=== PATIENT | female | born 1980 ===

== ENCOUNTER 2018-10-10 15:28 | Inpatient (IN) | payer BC, MEDICAID ==
[2018-10-10] MEDS ORDERED: HYDROmorphone 1 MG/ML Syringe IVPUSH ONE (16:06)
[2018-10-10] MEDS ORDERED: Ondansetron 4 MG/2 ML SDV IVPUSH ONE (16:06)
[2018-10-10] MEDS ORDERED: Ampicillin/Sulbactam Na 3 GM in Sodium Chloride 0.9% 100 ML IV ONE (16:07)
[2018-10-10] MEDS: Sodium Chloride 0.9% 1,000 ML IV SCH ×2 (16:17→19:17)
--- NOTE | 2018-10-10 16:26 | EDM.PDOC ---
ED HPI GENERAL MEDICAL PROBLEM - General Chief Complaint: ENT Problem Stated Complaint: LEFT SIDE OF FACE SWOLLEN Time Seen by Provider: 10/10/18 15:36 Source of Information: Reports: Patient, Family (), RN Notes Reviewed History Limitations: Reports: No Limitations - History of Present Illness INITIAL COMMENTS - FREE TEXT/NARRATIVE: The patient states that she underwent a left upper (likely tooth #11) root canal per her dentist, Dr. Walton, this past , 10/07/2018. She states that she was not prescribed any antibiotics. She states that she initially had some mild discomfort to the tooth after the numbing medicine wore off, then developed some left sided facial pain yesterday. She took Aleve, which was adequate. She states that she applied a heating pad to her face last night, and today she woke up with substantial left-sided facial swelling and pain. No recent fever. She denies oral drainage. The patient's PCP is Dr. Farley. Treatments BODY MASKER: Reports: NSAIDS Left Cheek Pain Score (Numeric/FACES): 8 - Related Data Allergies Allergy/AdvReac Type Severity Reaction Status Date / Time No Known Allergies Allergy Verified 10/10/18 15:39 Home Meds: Home Meds buPROPion [Wellbutrin] 100 mg PO DAILY 10/10/18 [History] Past Medical History HEENT History: Reports: Impaired Vision (Disconjugate gaze) Psychiatric History: Reports: Other (See Below) (Borderline personality disorder ) - Past Surgical History HEENT Surgical History: Reports: Adenoidectomy, Eye Surgery (Bilateral strabismus surgery), Naso-Sinus Surgery, Oral Surgery (wisdom teeth extraction) , Tonsillectomy Social & Family History - Tobacco Use Smoking Status *Q: Never Smoker - Caffeine Use Caffeine Use: Reports: Coffee - Alcohol Use Alcohol Use History: Yes Alcohol Use Frequency: Socially - Recreational Drug Use Recreational Drug Use: No - Living Situation & Occupation Living situation: Reports: Single, with Significant Other (Boyfriend), with Family (1 daughter) Occupation: Employed ([employer] at [employer]) ED ROS ENT - Review of Systems Review Of Systems: ROS reveals no pertinent complaints other than HPI. ED EXAM, ENT - Physical Exam Exam: See Below Exam Limited By: No Limitations General Appearance: Alert, WD/WN, No Apparent Distress Eye Exam: Bilateral Eye: EOMI, Other (Disconjugate gaze. Puffiness about left eye) Ears: Normal External Exam, Hearing Grossly Normal Nose: Normal Inspection Mouth/Throat: Normal Inspection, Normal Gums (no swelling or pointing), Normal Lips, Normal Oropharynx, Normal Teeth Head: Atraumatic, Facial Swelling (left maxillary), Facial Tenderness (over left maxillary sinus), Other (Left facial erythema) Neck: Normal Inspection, Supple, Non-Tender, Full Range of Motion. No: Lymphadenopathy (L), Lymphadenopathy (R) Respiratory/Chest: No Respiratory Distress, Lungs Clear, Normal Breath Sounds, No Accessory Muscle Use Cardiovascular: Normal Peripheral Pulses, Regular Rate, Rhythm, No Edema, No Gallop, No JVD, No Murmur, No Rub GI/Abdominal: Normal Bowel Sounds, Soft, Non-Tender, No Organomegaly, No Distention, No Abnormal Bruit, No Mass (Female) Exam: Deferred Rectal (Female) Exam: Deferred Back: Normal Inspection, Full Range of Motion Extremities: Normal Inspection, Normal Range of Motion, No Pedal Edema, Normal Capillary Refill Neurological: Alert, Oriented, Normal Cognition, No Motor/Sensory Deficits Psychiatric: Normal Affect Skin: Warm, Dry, Intact, Normal Color, No Rash Course - Vital Signs Last Recorded V/S: Last Vital Signs Temp 36.7 C 10/10/18 15:35 Pulse 58 L 10/10/18 15:35 Resp 18 10/10/18 15:35 BP 132/93 H 10/10/18 15:35 Pulse Ox 99 10/10/18 15:35 - Orders/Labs/Meds Orders: Active Orders 24 hr Category Date Time Status Max Facial Sinus w Cont [CT] Stat Exams 10/10/18 16:00 Taken Sodium Chloride 0.9% [Normal Saline] 1,000 ml Med 10/10/18 16:15 Active IV ASDIRECTED Medication Orders Sodium Chloride (Normal Saline) 1,000 mls @ 150 mls/hr IV ASDIRECTED ANA MARIA Last Admin: 10/10/18 16:17 Dose: 150 mls/hr Labs: Laboratory Tests 10/10/18 Range/Units 16:15 WBC 12.26 H (3.98-10.04) K/mm3 RBC 4.65 (3.98-5.22) M/mm3 Hgb 14.1 (11.2-15.7) gm/L Hct 41.7 (34.1-44.9) % MCV 89.7 (79.4-94.8) fl MCH 30.3 (25.6-32.2) pg MCHC 33.8 (32.2-35.5) g/dl RDW Std Deviation 39.8 (36.4-46.3) fL Plt Count 247 (182-369) K/mm3 MPV 10.0 (9.4-12.3) fl Neutrophils % (Manual) 76 H (40-60) % Band Neutrophils % 0 (0-10) % Lymphocytes % (Manual) 20 (20-40) % Atypical Lymphs % 0 % Monocytes % (Manual) 4 (2-10) % Eosinophils % (Manual) 0 L (0.7-5.8) % Basophils % (Manual) 0 L (0.1-1.2) Platelet Estimate Adequate RBC Morph Comment Normal Meds: Medications Generic Name Dose Route Start Last Admin Trade Name Freq PRN Reason Stop Dose Admin Sodium Chloride 1,000 mls @ 150 mls/hr 10/10/18 16:15 10/10/18 16:17 Normal Saline IV 150 mls/hr ASDIRECTED ANA MARIA Administration Discontinued Medications Generic Name Dose Route Start Last Admin Trade Name Freq PRN Reason Stop Dose Admin Hydromorphone HCl 1 mg 10/10/18 16:06 10/10/18 16:17 Dilaudid IVPUSH 10/10/18 16:07 1 mg ONETIME ONE Administration Ampicillin Sodium/Sulbactam 100 mls @ 200 mls/hr 10/10/18 16:07 10/10/18 16: 20 Sodium 3 gm/ Sodium Chloride IV 10/10/18 16:36 200 mls/hr ONETIME ONE Administration Iopamidol 50 ml 10/10/18 16:32 Isovue-370 (76%) IVPUSH 10/10/18 16:33 ONETIME ONE Iopamidol 50 ml 10/10/18 16:39 10/10/18 16:57 Isovue-370 (76%) IVPUSH 10/10/18 16:40 30 ml ONETIME ONE Administration Ketorolac Tromethamine 30 mg 10/10/18 17:06 10/10/18 17:09 Toradol IVPUSH 10/10/18 17:07 30 mg ONETIME STA Administration Ondansetron HCl 4 mg 10/10/18 16:06 10/10/18 16:17 Zofran IVPUSH 10/10/18 16:07 4 mg ONETIME ONE Administration - Re-Assessments/Exams Free Text/Narrative Re-Assessment/Exam: 10/10/18 16:12 Given the degree of left facial swelling of the patient has, I have ordered a CT scan maxillofacial to evaluate for an abscess, along with a CBC. In the meantime, the patient will receive Dilaudid, Zofran, and IV fluid. Additionally , since an infection is highly likely, I have ordered 3 g of IV Unasyn. 10/10/18 17:28 CT maxillofacial with contrast is read by Manohar as "Left periorbital/pre- maxillary soft tissue swelling and subcutaneous fat stranding. No abscess." 10/10/18 17:50 Case discussed with the patient and her . I recommended admission to the hospital for IV antibiotics until the patient's condition improves, at which time she can be switched to oral antibiotics. The patient agreed. 10/10/18 18:[address] Snow at 18:11. He asked that we see if Dr. Villaseñor will admit the patient. Case discussed with Dr. Villaseñor at 18:15. He agreed to admit the patient. Departure - Departure Time of Disposition: 18:17 Disposition: Admitted As Inpatient 67 Condition: Fair Clinical Impression: Facial infection - Discharge Information *PRESCRIPTION DRUG MONITORING PROGRAM REVIEWED*: Not Applicable *COPY OF PRESCRIPTION DRUG MONITORING REPORT IN PATIENT MIRNA: Not Applicable Referrals: Randi Roberson MD [Primary Care Provider] - - My Orders Last 24 Hours: My Active Orders 10/10/18 16:00 Max Facial Sinus w Cont [CT] Stat 10/10/18 16:15 Sodium Chloride 0.9% [Normal Saline] 1,000 ml IV ASDIRECTED - Assessment/Plan Last 24 Hours: My Active Orders 10/10/18 16:00 Max Facial Sinus w Cont [CT] Stat 10/10/18 16:15 Sodium Chloride 0.9% [Normal Saline] 1,000 ml IV ASDIRECTED
[2018-10-10] MEDS ORDERED: Iopamidol 755 MG/ML 50 ML Bottle IVPUSH ONE (16:32)
[2018-10-10] MEDS: Iopamidol 755 MG/ML 50 ML Bottle IVPUSH ONE ×2 (16:56→16:57)
[2018-10-10] MEDS ORDERED: Ketorolac 30 MG/ML SDV IVPUSH STA (17:06)
[2018-10-10] MEDS ORDERED: Acetaminophen 325 MG Tab PO PRN (19:58)
[2018-10-10] MEDS ORDERED: Ondansetron 4 MG Tab.DIS PO PRN (19:58)
--- NOTE | 2018-10-10 20:15 | PCM.HP ---
H&P History of Present Illness - General Date of Service: 10/10/18 Admit Problem/Dx: Admission Diagnosis/Problem Admission Diagnosis/Problem Facial infection - History of Present Illness Initial Comments - Free Text/Narative: This 38-year-old female underwent a left upper (likely tooth #11) root canal on September. Patient developed mild facial discomfort after the nerve block wore off. Over the next couple of days the left upper face became more painful, swollen, and became moderately severe yesterday. Today it continued to swell and she developed more pain and when her boyfriend saw her around 1500 today he brought her to the emergency room. Patient is able to handle her own secretions. She denies any fever or chills. She was not given any antibiotics at the time of the root canal. CT scan done by the emergency room physician demonstrated no abscess, But left periorbital/pre-maxillary soft tissue swelling and subcutaneous fat stranding. She was given Unasyn 3 g in the emergency room. She was also given 1 mg Dilaudid IV push, Toradol 30 mg IV push, and Zofran 4 mg IV push. Left Cheek Pain Score (Numeric/FACES): 8 - Related Data Allergies/Adverse Reactions: Allergies Allergy/AdvReac Type Severity Reaction Status Date / Time No Known Allergies Allergy Verified 10/10/18 15:39 Home Medications: Home Meds Multivitamin [Daily Multiple Vitamin] 1 each PO 1200 10/10/18 [History] buPROPion [Wellbutrin] 100 mg PO DAILY 10/10/18 [History] Past Medical History HEENT History: Reports: Impaired Vision (Disconjugate gaze) Psychiatric History: Reports: Other (See Below) (Borderline personality disorder ) - Past Surgical History HEENT Surgical History: Reports: Adenoidectomy, Eye Surgery (Bilateral strabismus surgery), Naso-Sinus Surgery, Oral Surgery (wisdom teeth extraction) , Tonsillectomy Social & Family History - Tobacco Use Smoking Status *Q: Never Smoker - Caffeine Use Caffeine Use: Reports: Coffee - Recreational Drug Use Recreational Drug Use: No - Living Situation & Occupation Living situation: Reports: Single, with Significant Other (Boyfriend), with Family (1 daughter) Occupation: Employed ([employer] at [employer]) H&P Review of Systems - Review of Systems: Review Of Systems: See Below General: Denies: Fever, Chills, Malaise HEENT: Reports: Other (Left facial pain and swelling). Denies: Ear Pain, Eye Pain, Headaches Pulmonary: Reports: No Symptoms. Denies: Shortness of Breath, Wheezing Cardiovascular: Reports: No Symptoms. Denies: Chest Pain, Palpitations Gastrointestinal: Reports: No Symptoms. Denies: Abdominal Pain Genitourinary: Reports: No Symptoms. Denies: Dysuria, Frequency Musculoskeletal: Reports: No Symptoms. Denies: Neck Pain, Shoulder Pain Skin: Reports: Erythema Psychiatric: Reports: No Symptoms. Denies: Confusion, Depression Neurological: Reports: No Symptoms Hematologic/Lymphatic: Reports: No Symptoms Exam - Exam Exam: See Below - Vital Signs Vital Signs: Last Vital Signs Temp 97.9 F 10/10/18 19:10 Pulse 61 10/10/18 19:10 Resp 16 10/10/18 19:10 BP 125/80 10/10/18 19:10 Pulse Ox 98 10/10/18 19:10 Weight: 194 lb 3.2 oz - Exam General: Alert, Oriented, Cooperative HEENT: Conjunctiva Clear, Mucosa Moist & [place], Posterior Pharynx Clear, Other ( Left maxillary area is red, swollen, and tender. Oral mucosa is moist with no signs of dental abscess.). No: EOMI (Amblyopia) Neck: Supple, Trachea Midline. No: Lymphadenopathy Lungs: Clear to Auscultation, Normal Respiratory Effort. No: Rales, Rhonchi Cardiovascular: Regular Rate, Regular Rhythm, Normal S1, Normal S2 GI/Abdominal Exam: Normal Bowel Sounds, Soft, Non-Tender, No Organomegaly, No Distention Extremities: Normal Inspection, Normal Range of Motion, No Pedal Edema Skin: Warm, Dry Neuro Extensive - Mental Status: Alert, Oriented x3, Normal Mood/Affect, Normal Cognition, Memory Intact - Patient Data Lab Results Last 24 hrs: Laboratory Results - last 24 hr 10/10/18 Range/Units 16:15 WBC 12.26 H (3.98-10.04) K/mm3 RBC 4.65 (3.98-5.22) M/mm3 Hgb 14.1 (11.2-15.7) gm/L Hct 41.7 (34.1-44.9) % MCV 89.7 (79.4-94.8) fl MCH 30.3 (25.6-32.2) pg MCHC 33.8 (32.2-35.5) g/dl RDW Std Deviation 39.8 (36.4-46.3) fL Plt Count 247 (182-369) K/mm3 MPV 10.0 (9.4-12.3) fl Neutrophils % (Manual) 76 H (40-60) % Band Neutrophils % 0 (0-10) % Lymphocytes % (Manual) 20 (20-40) % Atypical Lymphs % 0 % Monocytes % (Manual) 4 (2-10) % Eosinophils % (Manual) 0 L (0.7-5.8) % Basophils % (Manual) 0 L (0.1-1.2) Platelet Estimate Adequate RBC Morph Comment Normal Result Diagrams: 10/10/18 16:15 - Problem List (1) Facial infection SNOMED Code(s): 297680212 ICD Code: L08.9 - LOCAL INFECTION OF THE SKIN AND SUBCUTANEOUS TISSUE, UNSP Status: Acute Current Visit: Yes Problem List Initiated/Reviewed/Updated: Yes Orders Last 24hrs: Active Orders 24 hr Category Date Time Status Admission Status [Patient Status] [ADT] Routine ADT 10/10/18 18:46 Active Height and Weight [RC] DAILY Care 10/10/18 19:58 Ordered Intake and Output [RC] QSHIFT Care 10/10/18 19:59 Ordered May Shower [RC] ASDIRECTED Care 10/10/18 19:58 Ordered Oxygen Therapy [RC] PRN Care 10/10/18 19:59 Ordered Up ad Sariah [RC] ASDIRECTED Care 10/10/18 19:58 Ordered VTE/DVT Education [RC] PER UNIT ROUTINE Care 10/10/18 19:59 Ordered Vital Signs [RC] Q4H Care 10/10/18 19:59 Ordered Full Liquid Diet [DIET] Diet 10/11/18 Breakfast Ordered Max Facial Sinus w Cont [CT] Stat Exams 10/10/18 16:00 Taken C-REACTIVE PROTEIN [CHEM] AM Lab 10/11/18 05:11 Ordered CBC WITH AUTO DIFF [HEME] AM Lab 10/11/18 05:11 Ordered COMPREHENSIVE METABOLIC PN,CMP [CHEM] AM Lab 10/11/18 05:11 Ordered Acetaminophen [Tylenol] Med 10/10/18 19:58 Ordered 650 mg PO Q4H PRN Ampicillin/Sulbactam Na [Unasyn] 3 gm Med 10/10/18 22:15 Ordered Sodium Chloride 0.9% [Normal Saline] 100 ml IV Q6H HYDROmorphone [Dilaudid] Med 10/10/18 19:58 Ordered 0.5 mg IVPUSH Q2H PRN Ibuprofen [Motrin] Med 10/10/18 19:58 Ordered 600 mg PO Q6H PRN Ondansetron [Zofran ODT] Med 10/10/18 19:58 Ordered 4 mg PO Q4H PRN Sodium Chloride 0.9% [Normal Saline] 1,000 ml Med 10/10/18 16:15 Active IV ASDIRECTED Resuscitation Status Routine Resus Stat 10/10/18 19:13 Ordered Medication Orders Acetaminophen (Tylenol) 650 mg PO Q4H PRN PRN Reason: Pain (Mild 1-3)/fever Hydromorphone HCl (Dilaudid) 0.5 mg IVPUSH Q2H PRN PRN Reason: Pain (severe 7-10) Sodium Chloride (Normal Saline) 1,000 mls @ 150 mls/hr IV ASDIRECTED ANA MARIA Last Admin: 10/10/18 19:17 Dose: 150 mls/hr Infusion: 10/10/18 19:17 Dose: 150 mls/hr Admin: 10/10/18 16:17 Dose: 150 mls/hr Ampicillin Sodium/Sulbactam (Sodium 3 gm/ Sodium Chloride) 100 mls @ 200 mls/ hr IV Q6H ANA MARIA Ibuprofen (Motrin) 600 mg PO Q6H PRN PRN Reason: Pain (moderate 4-6) Ondansetron HCl (Zofran Odt) 4 mg PO Q4H PRN PRN Reason: nausea, able to take PO Assessment/Plan Comment:: Facial infection post left upper root canal - Patient be continued on Unasyn 3 g IV every 6 hours. - Pain control with Dilaudid, ibuprofen, and acetaminophen - Anticipate discharge in 48 hours. Anxiety and depression - We will get her home dose of Wellbutrin and restart her in the morning. VTE prophylaxis: patient is ambulatory
[2018-10-10] MEDS: Ibuprofen 600 MG Tab PO PRN (20:59)
[2018-10-10] MEDS: Ampicillin/Sulbactam Na 3 GM in Sodium Chloride 0.9% 100 ML IV SCH (20:59)
[2018-10-10] MEDS: HYDROmorphone 1 MG/ML Syringe IVPUSH PRN (21:33)
[2018-10-11] MEDS: Sodium Chloride 0.9% 1,000 ML IV SCH ×2 (00:10→07:23)
[2018-10-11] MEDS: Ibuprofen 600 MG Tab PO PRN ×4 (01:46→22:32)
[2018-10-11] MEDS: HYDROmorphone 1 MG/ML Syringe IVPUSH PRN ×3 (01:47→21:16)
[2018-10-11] MEDS: Ampicillin/Sulbactam Na 3 GM in Sodium Chloride 0.9% 100 ML IV SCH ×4 (05:21→21:21)
--- NOTE | 2018-10-11 07:11 | CT ---
CT facial bones Technique: Multiple axial sections through the facial bones were obtained. Intravenous contrast was utilized. Comparison: No previous study available. Findings: Soft tissue swelling noted within the anterior left cheek extending into the inferior periorbital region. No definite fluid collections are seen to indicate abscess at this time. Visualized sinuses are clear. No acute bony abnormality is appreciated. Impression: 1. Soft tissue swelling within the anterior left cheek extending into the inferior left periorbital region presumably representing cellulitis. No abscess is appreciated at this time. 2. No acute bony abnormality is seen. Diagnostic code #3 I agree with preliminary report from [facility], finalized on 10/10/18, 6:21 PM Central Time
[2018-10-11] MEDS ORDERED: Sodium Chloride 0.9% 10 ML Syringe FLUSH PRN (08:51)
[2018-10-11] MEDS: oxyCODONE 5 MG Tab PO PRN ×2 (13:26→18:28)
--- NOTE | 2018-10-11 15:48 | PCM.PN ---
- General Info Date of Service: 10/11/18 Admission Dx/Problem (Free Text): Admission Diagnosis/Problem Admission Diagnosis/Problem Facial infection Subjective Update: Patient continued to have pain overnight. She did get partial relief with the Dilaudid She denies any difficulty with swallowing. Denies any fever or chills. Official reading of the CT of the face showed: 1. Soft tissue swelling within the anterior left cheek extending into the left inferior periorbital region presumably representing cellulitis. No abscess is appreciated at this time. 2. No acute bony abnormality is seen. Sinuses were clear. - Review of Systems General: Denies: Fever, Weakness HEENT: Denies: Sinus Congestion, Sore Throat Pulmonary: Denies: Shortness of Breath, Cough Cardiovascular: Denies: Chest Pain Skin: Reports: Other (Swelling of the left cheek and jaw) - Patient Data Vitals - Most Recent: Last Vital Signs Temp 98.1 F 10/11/18 12:09 Pulse 66 10/11/18 12:09 Resp 20 10/11/18 12:09 BP 113/75 10/11/18 12:09 Pulse Ox 97 10/11/18 12:09 Weight - Most Recent: 194 lb 3.2 oz I&O - Last 24 Hours: Intake & Output 10/11/18 10/11/18 10/11/18 06:59 14:59 22:59 Intake Total 2107 680 Output Total 900 Balance 1207 680 Lab Results Last 24 Hours: Laboratory Results - last 24 hr 10/10/18 10/11/18 10/11/18 Range/Units 16:15 04:53 04:53 WBC 12.26 H 9.78 (3.98-10.04) K/mm3 RBC 4.65 3.96 L (3.98-5.22) M/mm3 Hgb 14.1 12.1 (11.2-15.7) gm/L Hct 41.7 36.5 (34.1-44.9) % MCV 89.7 92.2 (79.4-94.8) fl MCH 30.3 30.6 (25.6-32.2) pg MCHC 33.8 33.2 (32.2-35.5) g/dl RDW Std Deviation 39.8 40.7 (36.4-46.3) fL Plt Count 247 220 (182-369) K/mm3 MPV 10.0 10.8 (9.4-12.3) fl Neut % (Auto) 57.6 (34.0-71.1) % Lymph % (Auto) 21.8 (19.3-51.7) % [place] % (Auto) 18.4 H (4.7-12.5) % Eos % (Auto) 1.8 (0.7-5.8) Baso % (Auto) 0.2 (0.1-1.2) % Neut # (Auto) 5.63 (1.56-6.13) K/mm3 Lymph # (Auto) 2.13 (1.18-3.74) K/mm3 [place] # (Auto) 1.80 H (0.24-0.36) K/mm3 Eos # (Auto) 0.18 (0.04-0.36) K/mm3 Baso # (Auto) 0.02 (0.01-0.08) K/mm3 Neutrophils % (Manual) 76 H (40-60) % Band Neutrophils % 0 (0-10) % Lymphocytes % (Manual) 20 (20-40) % Atypical Lymphs % 0 % Monocytes % (Manual) 4 (2-10) % Eosinophils % (Manual) 0 L (0.7-5.8) % Basophils % (Manual) 0 L (0.1-1.2) Manual Slide Review Normal smear Platelet Estimate Adequate RBC Morph Comment Normal Sodium 138 (136-145) mEq/L Potassium 4.0 (3.5-5.1) mEq/L Chloride 104 (98-107) mEq/L Carbon Dioxide 26 (21-32) mEq/L Anion Gap 12.0 (5-15) BUN 8 (7-18) mg/dL Creatinine 0.8 (0.55-1.02) mg/dL Est Cr Clr Drug Dosing 90.13 mL/min Estimated GFR (MDRD) > 60 (>60) mL/min BUN/Creatinine Ratio 10.0 L (14-18) Glucose 95 (74-106) mg/dL Calcium 8.4 L (8.5-10.1) mg/dL Total Bilirubin 1.0 (0.2-1.0) mg/dL AST 8 L (15-37) U/L ALT 13 L (14-59) U/L Alkaline Phosphatase 49 (46-116) U/L C-Reactive Protein 9.1 H* (<1.0) mg/dL Total Protein 6.6 (6.4-8.2) g/dl Albumin 3.0 L (3.4-5.0) g/dl Globulin 3.6 gm/dL Albumin/Globulin Ratio 0.8 L (1-2) Med Orders - Current: Current Medications Acetaminophen (Tylenol) 650 mg PO Q4H PRN PRN Reason: Pain (Mild 1-3)/fever Hydromorphone HCl (Dilaudid) 0.5 mg IVPUSH Q2H PRN PRN Reason: Pain (severe 7-10) Last Admin: 10/11/18 08:44 Dose: 0.5 mg Ampicillin Sodium/Sulbactam (Sodium 3 gm/ Sodium Chloride) 100 mls @ 200 mls/ hr IV Q6H PENDING SALE TO [facility] Last Admin: 10/11/18 09:23 Dose: 200 mls/hr Ibuprofen (Motrin) 600 mg PO Q6H PRN PRN Reason: Pain (moderate 4-6) Last Admin: 10/11/18 08:35 Dose: 600 mg Ondansetron HCl (Zofran Odt) 4 mg PO Q4H PRN PRN Reason: nausea, able to take PO Oxycodone HCl (Oxycodone) 5 mg PO Q4H PRN PRN Reason: Pain Last Admin: 10/11/18 13:26 Dose: 5 mg Sodium Chloride (Saline Flush) 10 ml FLUSH ASDIRECTED PRN PRN Reason: Keep Vein Open Discontinued Medications Hydromorphone HCl (Dilaudid) 1 mg IVPUSH ONETIME ONE Stop: 10/10/18 16:07 Last Admin: 10/10/18 16:17 Dose: 1 mg Ampicillin Sodium/Sulbactam (Sodium 3 gm/ Sodium Chloride) 100 mls @ 200 mls/ hr IV ONETIME ONE Stop: 10/10/18 16:36 Last Admin: 10/10/18 16:20 Dose: 200 mls/hr Sodium Chloride (Normal Saline) 1,000 mls @ 150 mls/hr IV ASDIRECTED ANA MARIA Last Admin: 10/11/18 07:23 Dose: 150 mls/hr Ampicillin Sodium/Sulbactam (Sodium 3 gm/ Sodium Chloride) 100 mls @ 200 mls/ hr IV Q6H ANA MARIA Last Admin: 10/11/18 05:21 Dose: 200 mls/hr Iopamidol (Isovue-370 (76%)) 50 ml IVPUSH ONETIME ONE Stop: 10/10/18 16:33 Last Admin: 10/11/18 01:27 Dose: Not Given Iopamidol (Isovue-370 (76%)) 50 ml IVPUSH ONETIME ONE Stop: 10/10/18 16:40 Last Admin: 10/10/18 16:57 Dose: 30 ml Ketorolac Tromethamine (Toradol) 30 mg IVPUSH ONETIME STA Stop: 10/10/18 17:07 Last Admin: 10/10/18 17:09 Dose: 30 mg Ondansetron HCl (Zofran) 4 mg IVPUSH ONETIME ONE Stop: 10/10/18 16:07 Last Admin: 10/10/18 16:17 Dose: 4 mg - Exam General: Alert, Oriented, Cooperative, No Acute Distress Neck: Supple, Trachea Midline Lungs: Clear to Auscultation, Normal Respiratory Effort Cardiovascular: Regular Rate, Regular Rhythm GI/Abdominal Exam: Normal Bowel Sounds, No Distention Extremities: Normal Inspection, No Pedal Edema Skin: Warm, Dry, Intact, Other (Left maxillary region continues to be erythematous and swollen. No significant change overnight.) - Problem List & Annotations (1) Facial infection SNOMED Code(s): 548498725 Code(s): L08.9 - LOCAL INFECTION OF THE SKIN AND SUBCUTANEOUS TISSUE, UNSP Status: Acute Current Visit: Yes (2) Periorbital cellulitis of left eye SNOMED Code(s): 475042387 Code(s): L03.213 - PERIORBITAL CELLULITIS Status: Acute Current Visit: Yes - Problem List Review Problem List Initiated/Reviewed/Updated: Yes - My Orders Last 24 Hours: My Active Orders 10/10/18 19:13 Resuscitation Status Routine 10/10/18 19:58 Height and Weight [RC] 04 November Shower [RC] ASDIRECTED Up ad Sariah [RC] ASDIRECTED Acetaminophen [Tylenol] 650 mg PO Q4H PRN HYDROmorphone [Dilaudid] 0.5 mg IVPUSH Q2H PRN Ibuprofen [Motrin] 600 mg PO Q6H PRN Ondansetron [Zofran ODT] 4 mg PO Q4H PRN 10/10/18 19:59 Intake and Output [RC] 04,16 Oxygen Therapy [RC] PRN VTE/DVT Education [RC] 10,22 Vital Signs [RC] Q4HR 10/11/18 08:51 Sodium Chloride 0.9% [Saline Flush] 10 ml FLUSH ASDIRECTED PRN Convert IV to Saline Lock [OM.PC] Routine 10/11/18 10:00 Ampicillin/Sulbactam Na [Unasyn] 3 gm Sodium Chloride 0.9% [Normal Saline] 100 ml IV Q6H 10/11/18 11:23 oxyCODONE 5 mg PO Q4H PRN 10/11/18 Breakfast Full Liquid Diet [DIET] 10/12/18 05:11 CBC WITH AUTO DIFF [HEME] AM CMP [COMPREHENSIVE METABOLIC PN,CMP] [CHEM] AM CRP [C-REACTIVE PROTEIN] [CHEM] Routine - Plan Plan:: Facial infection post left upper root canal - Patient be continued on Unasyn 3 g IV every 6 hours. - Pain control with Dilaudid, ibuprofen, and acetaminophen - Anticipate discharge in 48 hours. Anxiety and depression - We will get her home dose of Wellbutrin and restart her in the morning. VTE prophylaxis: patient is ambulatory
[2018-10-12] MEDS: Ampicillin/Sulbactam Na 3 GM in Sodium Chloride 0.9% 100 ML IV SCH ×3 (04:44→16:02)
[2018-10-12] MEDS: oxyCODONE 5 MG Tab PO PRN ×2 (04:50→12:56)
[2018-10-12] MEDS: HYDROmorphone 1 MG/ML Syringe IVPUSH PRN (06:43)
[2018-10-12] MEDS: Ibuprofen 600 MG Tab PO PRN (08:05)
[2018-10-12] MEDS ORDERED: Sodium Chloride 0.9% 10 ML Syringe FLUSH PRN (09:25)
[2018-10-12] MEDS ORDERED: Iopamidol 755 Mg/ML 100 ML Bottle IVPUSH ONE (09:25)
[2018-10-12] MEDS ORDERED: Iopamidol 755 Mg/ML 200 ML Bottle IV ONE (09:30)
--- NOTE | 2018-10-12 12:05 | CT ---
Maxillofacial CT: Multiple axial sections through the facial structures were obtained. Intravenous contrast was utilized. Reconstructed coronal and sagittal images were reviewed. Comparison: CT facial bone study of 10/10/18. Findings: Diminished soft tissue swelling seen within the left cheek and within the left periorbital region from previous exam. No fluid collections are seen to indicate a discrete abscess. Submandibular and parotid salivary glands are within normal limits. No adenopathy is seen within the neck. Paranasal sinuses are clear. No bony abnormality is appreciated. Impression: 1. Diminished soft tissue swelling on the left side when compared to prior study. 2. No additional abnormality seen on CT study of the maxillofacial structures. Diagnostic code #2
--- NOTE | 2018-10-12 13:59 | PCM.PN ---
- General Info Date of Service: 10/12/18 Admission Dx/Problem (Free Text): Admission Diagnosis/Problem Admission Diagnosis/Problem Facial infection Subjective Update: October 12, 2018 Patient continues to have left-sided facial pain. She states that it has worsened overnight. It started getting worse around 10:00 at night and she did require Dilaudid. She has had no fever or chills. She has no difficulty swallowing. Denies blurred vision. October 11, 2018 Patient continued to have pain overnight. She did get partial relief with the Dilaudid She denies any difficulty with swallowing. Denies any fever or chills. Official reading of the CT of the face showed: 1. Soft tissue swelling within the anterior left cheek extending into the left inferior periorbital region presumably representing cellulitis. No abscess is appreciated at this time. 2. No acute bony abnormality is seen. Sinuses were clear. - Review of Systems General: Reports: No Symptoms HEENT: Reports: Other (Continued facial pain) Pulmonary: Reports: No Symptoms Gastrointestinal: Reports: No Symptoms - Patient Data Vitals - Most Recent: Last Vital Signs Temp 98.4 F 10/12/18 04:52 Pulse 53 L 10/12/18 04:52 Resp 18 10/12/18 04:52 BP 132/87 10/12/18 04:52 Pulse Ox 97 10/12/18 04:52 Weight - Most Recent: 195 lb 1.6 oz I&O - Last 24 Hours: Intake & Output 10/11/18 10/12/18 10/12/18 22:59 06:59 14:59 Intake Total 1630 600 120 Output Total 600 1000 Balance 1030 -400 120 Lab Results Last 24 Hours: Laboratory Results - last 24 hr 10/12/18 10/12/18 Range/Units 04:57 04:57 WBC 8.55 (3.98-10.04) K/mm3 RBC 4.18 (3.98-5.22) M/mm3 Hgb 12.5 (11.2-15.7) gm/L Hct 38.1 (34.1-44.9) % MCV 91.1 (79.4-94.8) fl MCH 29.9 (25.6-32.2) pg MCHC 32.8 (32.2-35.5) g/dl RDW Std Deviation 39.6 (36.4-46.3) fL Plt Count 231 (182-369) K/mm3 MPV 10.4 (9.4-12.3) fl Neut % (Auto) 56.8 (34.0-71.1) % Lymph % (Auto) 22.9 (19.3-51.7) % [place] % (Auto) 17.0 H (4.7-12.5) % Eos % (Auto) 2.9 (0.7-5.8) Baso % (Auto) 0.2 (0.1-1.2) % Neut # (Auto) 4.85 (1.56-6.13) K/mm3 Lymph # (Auto) 1.96 (1.18-3.74) K/mm3 [place] # (Auto) 1.45 H (0.24-0.36) K/mm3 Eos # (Auto) 0.25 (0.04-0.36) K/mm3 Baso # (Auto) 0.02 (0.01-0.08) K/mm3 Manual Slide Review Normal smear Sodium 137 (136-145) mEq/L Potassium 4.0 (3.5-5.1) mEq/L Chloride 102 (98-107) mEq/L Carbon Dioxide 27 (21-32) mEq/L Anion Gap 12.0 (5-15) BUN 8 (7-18) mg/dL Creatinine 0.8 (0.55-1.02) mg/dL Est Cr Clr Drug Dosing 90.13 mL/min Estimated GFR (MDRD) > 60 (>60) mL/min BUN/Creatinine Ratio 10.0 L (14-18) Glucose 93 (74-106) mg/dL Calcium 9.0 (8.5-10.1) mg/dL Total Bilirubin 0.7 (0.2-1.0) mg/dL AST 7 L (15-37) U/L ALT 13 L (14-59) U/L Alkaline Phosphatase 50 (46-116) U/L C-Reactive Protein 7.1 H* (<1.0) mg/dL Total Protein 7.1 (6.4-8.2) g/dl Albumin 3.1 L (3.4-5.0) g/dl Globulin 4.0 gm/dL Albumin/Globulin Ratio 0.8 L (1-2) Med Orders - Current: Current Medications Acetaminophen (Tylenol) 650 mg PO Q4H PRN PRN Reason: Pain (Mild 1-3)/fever Hydromorphone HCl (Dilaudid) 0.5 mg IVPUSH Q2H PRN PRN Reason: Pain (severe 7-10) Last Admin: 10/12/18 06:43 Dose: 0.5 mg Ampicillin Sodium/Sulbactam (Sodium 3 gm/ Sodium Chloride) 100 mls @ 200 mls/ hr IV Q6H [facility] Last Admin: 10/12/18 10:50 Dose: 200 mls/hr Ibuprofen (Motrin) 600 mg PO Q6H PRN PRN Reason: Pain (moderate 4-6) Last Admin: 10/12/18 08:05 Dose: 600 mg Ondansetron HCl (Zofran Odt) 4 mg PO Q4H PRN PRN Reason: nausea, able to take PO Oxycodone HCl (Oxycodone) 5 mg PO Q4H PRN PRN Reason: Pain Last Admin: 10/12/18 12:56 Dose: 5 mg Sodium Chloride (Saline Flush) 10 ml FLUSH ASDIRECTED PRN PRN Reason: Keep Vein Open Discontinued Medications Hydromorphone HCl (Dilaudid) 1 mg IVPUSH ONETIME ONE Stop: 10/10/18 16:07 Last Admin: 10/10/18 16:17 Dose: 1 mg Ampicillin Sodium/Sulbactam (Sodium 3 gm/ Sodium Chloride) 100 mls @ 200 mls/ hr IV ONETIME ONE Stop: 10/10/18 16:36 Last Admin: 10/10/18 16:20 Dose: 200 mls/hr Sodium Chloride (Normal Saline) 1,000 mls @ 150 mls/hr IV ASDIRECTED [facility] Last Admin: 10/11/18 07:23 Dose: 150 mls/hr Ampicillin Sodium/Sulbactam (Sodium 3 gm/ Sodium Chloride) 100 mls @ 200 mls/ hr IV Q6H [facility] Last Admin: 10/11/18 05:21 Dose: 200 mls/hr Iopamidol (Isovue-370 (76%)) 50 ml IVPUSH ONETIME ONE Stop: 10/10/18 16:33 Last Admin: 10/11/18 01:27 Dose: Not Given Iopamidol (Isovue-370 (76%)) 50 ml IVPUSH ONETIME ONE Stop: 10/10/18 16:40 Last Admin: 10/10/18 16:57 Dose: 30 ml Iopamidol (Isovue-370 (76%)) 100 ml IVPUSH ONETIME ONE Stop: 10/12/18 09:26 Iopamidol (Isovue-370 (76%)) 200 ml IV ONETIME ONE Stop: 10/12/18 09:31 Last Admin: 10/12/18 09:33 Dose: 100 ml Ketorolac Tromethamine (Toradol) 30 mg IVPUSH ONETIME STA Stop: 10/10/18 17:07 Last Admin: 10/10/18 17:09 Dose: 30 mg Ondansetron HCl (Zofran) 4 mg IVPUSH ONETIME ONE Stop: 10/10/18 16:07 Last Admin: 10/10/18 16:17 Dose: 4 mg Sodium Chloride (Saline Flush) 10 ml FLUSH ONETIME PRN PRN Reason: IV FLUSH Stop: 10/12/18 11:00 Last Admin: 10/12/18 09:33 Dose: 10 ml - Exam General: Alert, Oriented HEENT: Other (Decrease facial swelling on the left side. Significant tenderness along the left medial face near the nose) Lungs: Clear to Auscultation, Normal Respiratory Effort Cardiovascular: Regular Rate, Regular Rhythm GI/Abdominal Exam: Normal Bowel Sounds, Soft, Non-Tender, No Distention Skin: Warm, Dry, Intact - Problem List & Annotations (1) Facial infection SNOMED Code(s): 786902396 Code(s): L08.9 - LOCAL INFECTION OF THE SKIN AND SUBCUTANEOUS TISSUE, UNSP Status: Acute Current Visit: Yes (2) Periorbital cellulitis of left eye SNOMED Code(s): 055407603 Code(s): L03.213 - PERIORBITAL CELLULITIS Status: Acute Current Visit: Yes - Problem List Review Problem List Initiated/Reviewed/Updated: Yes - My Orders Last 24 Hours: My Active Orders 10/11/18 Dinner Regular Diet [DIET] - Plan Plan:: Facial infection post left upper root canal - Patient be continued on Unasyn 3 g IV every 6 hours. She will be switched over to by mouth Augmentin at discharge. - Pain became significantly worse this morning. I ordered a CT of the face and it showed 1. Diminished soft tissue swelling on the left side when compared to previous study. 2. No additional abnormality seen on CT study of the maxillofacial structures. - Anticipate discharge in the next day Anxiety and depression - We will get her home dose of Wellbutrin and restart her in the morning. VTE prophylaxis: patient is ambulatory
--- NOTE | 2018-10-12 15:11 | PCM.DCSUM1 ---
Discharge Summary - Hospital Course Brief History: This 38-year-old female underwent a left upper (likely tooth #11 ) root canal on September. Patient developed mild facial discomfort after the nerve block wore off. Over the next couple of days the left upper face became more painful, swollen, and became moderately severe yesterday. Today it continued to swell and she developed more pain and when her boyfriend saw her around 1500 today he brought her to the emergency room. Patient is able to handle her own secretions. She denies any fever or chills. She was not given any antibiotics at the time of the root canal. CT scan done by the emergency room physician demonstrated no abscess, But left periorbital/ pre-maxillary soft tissue swelling and subcutaneous fat stranding. She was given Unasyn 3 g in the emergency room. She was also given 1 mg Dilaudid IV push , Toradol 30 mg IV push, and Zofran 4 mg IV push. - Discharge Data Discharge Date: 10/12/18 Discharge Disposition: Home, Self-Care 01 Condition: Good - Discharge Diagnosis/Problem(s) (1) Facial infection SNOMED Code(s): 192456821 ICD Code: L08.9 - LOCAL INFECTION OF THE SKIN AND SUBCUTANEOUS TISSUE, UNSP Status: Acute Current Visit: Yes (2) Periorbital cellulitis of left eye SNOMED Code(s): 437942839 ICD Code: L03.213 - PERIORBITAL CELLULITIS Status: Acute Current Visit: Yes - Discharge Plan *PRESCRIPTION DRUG MONITORING PROGRAM REVIEWED*: Not Applicable *COPY OF PRESCRIPTION DRUG MONITORING REPORT IN PATIENT MIRNA: Not Applicable Prescriptions/Med Rec: Amoxicillin/Clavulanate K [Augmentin 875-125 MG] 1 tab PO Q12HR 7 Days #14 tablet oxyCODONE 5 mg PO Q4H PRN #10 tablet PRN Reason: Pain Home Medications: Home Meds Multivitamin [Daily Multiple Vitamin] 1 each PO 1200 10/10/18 [History] buPROPion [Wellbutrin] 300 mg PO DAILY 10/10/18 [History] Amoxicillin/Clavulanate K [Augmentin 875-125 MG] 1 tab PO Q12HR 7 Days #14 tablet 10/12/18 [Rx] oxyCODONE 5 mg PO Q4H PRN #10 tablet 10/12/18 [Rx] Referrals: Randi Roberson MD [Primary Care Provider] - - Discharge Summary/Plan Comment DC Time >30 min.: Yes Discharge Summary/Plan Comment: Facial infection post left upper root canal - Patient treated for 3 days of Unasyn 3 g IV every 6 hours. She will be switched over to Augmentin 875 mg twice a day at discharge. - oxycodone 5 mg every 4 hours as needed for pain, #10. - Pain became significantly worse this morning, so a repeat CT of the face was done and it showed 1. Diminished soft tissue swelling on the left side when compared to previous study. 2. No additional abnormality seen on CT study of the maxillofacial structures. - Follow up with PCP and dentist in 1 week. - General Info Date of Service: 10/12/18 Admission Dx/Problem (Free Text: Admission Diagnosis/Problem Admission Diagnosis/Problem Facial infection - Patient Data Vitals - Most Recent: Last Vital Signs Temp 98.8 F 10/12/18 13:56 Pulse 62 10/12/18 13:56 Resp 18 10/12/18 13:56 BP 127/93 H 10/12/18 13:56 Pulse Ox 97 10/12/18 13:56 Weight - Most Recent: 195 lb 1.6 oz I&O - Last 24 hours: Intake & Output 10/12/18 10/12/18 10/12/18 06:59 14:59 22:59 Intake Total 600 660 Output Total 1000 Balance -400 660 Lab Results - Last 24 hrs: Laboratory Results - last 24 hr 10/12/18 10/12/18 Range/Units 04:57 04:57 WBC 8.55 (3.98-10.04) K/mm3 RBC 4.18 (3.98-5.22) M/mm3 Hgb 12.5 (11.2-15.7) gm/L Hct 38.1 (34.1-44.9) % MCV 91.1 (79.4-94.8) fl MCH 29.9 (25.6-32.2) pg MCHC 32.8 (32.2-35.5) g/dl RDW Std Deviation 39.6 (36.4-46.3) fL Plt Count 231 (182-369) K/mm3 MPV 10.4 (9.4-12.3) fl Neut % (Auto) 56.8 (34.0-71.1) % Lymph % (Auto) 22.9 (19.3-51.7) % [place] % (Auto) 17.0 H (4.7-12.5) % Eos % (Auto) 2.9 (0.7-5.8) Baso % (Auto) 0.2 (0.1-1.2) % Neut # (Auto) 4.85 (1.56-6.13) K/mm3 Lymph # (Auto) 1.96 (1.18-3.74) K/mm3 [place] # (Auto) 1.45 H (0.24-0.36) K/mm3 Eos # (Auto) 0.25 (0.04-0.36) K/mm3 Baso # (Auto) 0.02 (0.01-0.08) K/mm3 Manual Slide Review Normal smear Sodium 137 (136-145) mEq/L Potassium 4.0 (3.5-5.1) mEq/L Chloride 102 (98-107) mEq/L Carbon Dioxide 27 (21-32) mEq/L Anion Gap 12.0 (5-15) BUN 8 (7-18) mg/dL Creatinine 0.8 (0.55-1.02) mg/dL Est Cr Clr Drug Dosing 90.13 mL/min Estimated GFR (MDRD) > 60 (>60) mL/min BUN/Creatinine Ratio 10.0 L (14-18) Glucose 93 (74-106) mg/dL Calcium 9.0 (8.5-10.1) mg/dL Total Bilirubin 0.7 (0.2-1.0) mg/dL AST 7 L (15-37) U/L ALT 13 L (14-59) U/L Alkaline Phosphatase 50 (46-116) U/L C-Reactive Protein 7.1 H* (<1.0) mg/dL Total Protein 7.1 (6.4-8.2) g/dl Albumin 3.1 L (3.4-5.0) g/dl Globulin 4.0 gm/dL Albumin/Globulin Ratio 0.8 L (1-2) Med Orders - Current: Current Medications Acetaminophen (Tylenol) 650 mg PO Q4H PRN PRN Reason: Pain (Mild 1-3)/fever Hydromorphone HCl (Dilaudid) 0.5 mg IVPUSH Q2H PRN PRN Reason: Pain (severe 7-10) Last Admin: 10/12/18 06:43 Dose: 0.5 mg Ampicillin Sodium/Sulbactam (Sodium 3 gm/ Sodium Chloride) 100 mls @ 200 mls/ hr IV Q6H [facility] Last Admin: 10/12/18 10:50 Dose: 200 mls/hr Ibuprofen (Motrin) 600 mg PO Q6H PRN PRN Reason: Pain (moderate 4-6) Last Admin: 10/12/18 08:05 Dose: 600 mg Ondansetron HCl (Zofran Odt) 4 mg PO Q4H PRN PRN Reason: nausea, able to take PO Oxycodone HCl (Oxycodone) 5 mg PO Q4H PRN PRN Reason: Pain Last Admin: 10/12/18 12:56 Dose: 5 mg Sodium Chloride (Saline Flush) 10 ml FLUSH ASDIRECTED PRN PRN Reason: Keep Vein Open Discontinued Medications Hydromorphone HCl (Dilaudid) 1 mg IVPUSH ONETIME ONE Stop: 10/10/18 16:07 Last Admin: 10/10/18 16:17 Dose: 1 mg Ampicillin Sodium/Sulbactam (Sodium 3 gm/ Sodium Chloride) 100 mls @ 200 mls/ hr IV ONETIME ONE Stop: 10/10/18 16:36 Last Admin: 10/10/18 16:20 Dose: 200 mls/hr Sodium Chloride (Normal Saline) 1,000 mls @ 150 mls/hr IV ASDIRECTED [facility] Last Admin: 10/11/18 07:23 Dose: 150 mls/hr Ampicillin Sodium/Sulbactam (Sodium 3 gm/ Sodium Chloride) 100 mls @ 200 mls/ hr IV Q6H [facility] Last Admin: 10/11/18 05:21 Dose: 200 mls/hr Iopamidol (Isovue-370 (76%)) 50 ml IVPUSH ONETIME ONE Stop: 10/10/18 16:33 Last Admin: 10/11/18 01:27 Dose: Not Given Iopamidol (Isovue-370 (76%)) 50 ml IVPUSH ONETIME ONE Stop: 10/10/18 16:40 Last Admin: 10/10/18 16:57 Dose: 30 ml Iopamidol (Isovue-370 (76%)) 100 ml IVPUSH ONETIME ONE Stop: 10/12/18 09:26 Iopamidol (Isovue-370 (76%)) 200 ml IV ONETIME ONE Stop: 10/12/18 09:31 Last Admin: 10/12/18 09:33 Dose: 100 ml Ketorolac Tromethamine (Toradol) 30 mg IVPUSH ONETIME STA Stop: 10/10/18 17:07 Last Admin: 10/10/18 17:09 Dose: 30 mg Ondansetron HCl (Zofran) 4 mg IVPUSH ONETIME ONE Stop: 10/10/18 16:07 Last Admin: 10/10/18 16:17 Dose: 4 mg Sodium Chloride (Saline Flush) 10 ml FLUSH ONETIME PRN PRN Reason: IV FLUSH Stop: 10/12/18 11:00 Last Admin: 10/12/18 09:33 Dose: 10 ml
== END 2018-10-12 17:15 | disposition home or self-care (01) | DRG 721 ==
LOC: JD.ED 15:28 → JD.MS 18:46
PROVIDERS: ADMIT Family Medicine; ATTEND Family Medicine
DX: T81.40XA Infection following a procedure, unspecified, initial encounter (principal); L08.9 Local infection of the skin and subcutaneous tissue, unspecified; L03.213 Periorbital cellulitis; Y83.8 Other surgical procedures as the cause of abnormal reaction of the patient, or of later complication, without mention of misadventure at the time of the procedure; H54.7 Unspecified visual loss; F60.3 Borderline personality disorder; F41.9 Anxiety disorder, unspecified; F32.9 Major depressive disorder, single episode, unspecified; Z79.899 Other long term (current) drug therapy
CPT/HCPCS: 36415; 70487; 70487-26; 80053; 85007; 85025; 85027; 86140; 96361; 96365; 96375; 99284; 99284-25; A9270-GY; J0295; J1170; J1885; J2405; J7030; J7040; Q9967

== ENCOUNTER 2024-07-06 20:44 | Emergency (ER) | payer BC ==
[2024-07-06] MEDS ORDERED: Sodium Chloride 0.9% 10 ML Syringe FLUSH PRN (21:12)
[2024-07-06 21:42] LABS: BASOPHILS PERCENT AUTO 0.4 % (0.0-1.0); EOSINOPHILS ABSOLUTE AUTO 0.2 K/mm3 (0.0-0.4); EOSINOPHILS PERCENT AUTO 2.1 % (0.0-6.0); HEMATOCRIT 31.6 % (37.0-47.0); HEMOGLOBIN 11.2 gm/dl (12.0-16.0); IMMATURE GRAN ABSOLUTE AUTO 0.02 K/mm3 (0.00-0.05); IMMATURE GRAN PERCENT AUTO 0.3 % (0.0-0.4); LYMPHOCYTES ABSOLUTE AUTO 2.8 K/mm3 (1.0-4.8); LYMPHOCYTES PERCENT AUTO 38.5 % (24.0-44.0); MEAN CORPUSCULAR HGB CONC 35.4 g/dl (32.0-36.0); MEAN CORPUSCULAR VOLUME 81.9 fl (83.0-99.0); MEAN PLATELET VOLUME 10.1 fl (9.4-12.3); MONOCYTES ABSOLUTE AUTO 0.7 K/mm3 (0.0-0.8); MONOCYTES PERCENT AUTO 9.8 % (0.0-8.0); NEUTROPHILS ABSOLUTE AUTO 3.5 K/mm3 (1.8-7.7); NEUTROPHILS PERCENT AUTO 48.9 % (41.0-71.0); PLATELET COUNT,PLT 267 K/mm3 (150-400); RED BLOOD CELL COUNT 3.86 M/mm3 (4.10-5.30); WHITE BLOOD CELL COUNT,WBC 7.17 K/mm3 (3.9-11.3)
[2024-07-06 22:00] LABS: HCG QUALITATIVE,SERUM NEGATIVE (NEGATIVE)
[2024-07-06 22:02] LABS: BARBITURATE SCREEN,URINE NEGATIVE (CUTOFF=200); BENZODIAZEPINES SCREEN,URINE NEGATIVE (CUTOFF=150); BUPRENORPHINE SCREEN,URINE NEGATIVE (CUTOFF=10); METHADONE SCREEN, URINE NEGATIVE (CUTOFF=200); METHAMPHETAMINES SCREEN, URINE NEGATIVE (CUTOFF=500); OXYCODONE SCREEN,URINE NEGATIVE (CUT0FF=100); THC SCREEN,URINE 20 NG/ML PRESUMPTIVE POSITIVE (CUTOFF=50)
[2024-07-06 22:04] LABS: AMPHETAMINES SCREEN, URINE NEGATIVE (CUTOFF=500)
[2024-07-06 22:23] LABS: PRO B-TYPE NATRIUR PEPT,BNPPRO 70 pg/mL (0-125)
[2024-07-06 22:26] LABS: A/G RATIO 0.9 (1-2); ALBUMIN 3.3 g/dl (3.4-5.0); ANION GAP 10.6 (5-15); BILIRUBIN TOTAL 0.5 mg/dL (0.2-1.0); BUN/CREATININE RATIO 11.3 (14-18); CALCIUM 8.4 mg/dL (8.5-10.1); CREATININE 0.8 mg/dL (0.55-1.02); EST CRCL DRUG DOSING (CG) 89.08 mL/min; MAGNESIUM 1.8 mg/dL (1.8-2.4); POTASSIUM,K 3.6 mEq/L (3.5-5.1); PROTEIN TOTAL,TP 7.1 g/dl (6.4-8.2); TSH 3.645 uIU/mL (0.358-3.74)
[2024-07-06] MEDS: Sodium Chloride 0.9% 1,000 ML IV ONE ×2 (22:29→23:23)
[2024-07-06] MEDS: Ondansetron 4 MG/2 ML SDV IVPUSH ONE ×2 (22:29→23:23)
[2024-07-07] MEDS: Meclizine 25 MG Tab PO ONE (00:52)
== END 2024-07-07 01:02 | disposition home or self-care (01) ==
LOC: JD.ED 20:44
DX: R42 Dizziness and giddiness (principal); R11.0 Nausea; E66.9 Obesity, unspecified; Z90.89 Acquired absence of other organs; Z88.8 Allergy status to other drugs, medicaments and biological substances; Z79.899 Other long term (current) drug therapy; Z68.32 Body mass index [BMI] 32.0-32.9, adult
CPT/HCPCS: 36415; 71045; 80053; 80306; 83735; 83880; 84443; 84703; 85025; 93005; 96361; 96374; 99284; A9270; J2405; J7030